=== PATIENT | male | born 1955 | race Caucasian/White ===

== ENCOUNTER 2020-08-03 17:27 | Inpatient (IN) | payer MEDICARE, MEDICAID ==
[2020-08-03] VITALS (20 sets, daily range): BP systolic 88–129; BP diastolic 50–98; BMI 17.7
[~2020-08-03] VITALS: Ht 177.8 cm; Wt 60.6 kg
--- NOTE | 2020-08-03 17:27 | NUR ---
PATIENT ARRIVED VIA SURVIVAL FLIGHT FROM [facility] POST LENGTHY CARDIAC ARREST WITH CPR AND ACLS PROTOCOLS. PATIENT IS UNRESPONSIVE, INTUBATED ORALLY WITH 7.5 ETT, 23CM AT LIP LINE. NASOGASTRIC TUBE TO RIGHT NARE DRAINING BLOOD TINGED FLUID. TO LOW INTERMITTENT SUCTION. RIGHT EXTERNAL JUGULAR [address], FLUSHES WELL. RIGHT FOREARM 20 GA ALSO FLUSHES WELL. LEFT TIBIAL IO IN PLACE, LINE CLAMPED. NGUYEN CATHETER INTACT DRAINING SCANT YELLOW URINE. VENTILATOR INITIATED: FIO2 100%, AC 18, VT 500 AND PEEP 5. NO SPONTANEOUS RESPIRATIONS. SINUS RHYTHM ON MONITOR. BP 119/59. LEVOPHED DRIP AT 2MCG/MN STOPPED PER DR. WATSON.
--- NOTE | 2020-08-03 17:40 | NUR ---
VENTILATOR SETTINGS CHANGED TO FIO2 OF 60%. PO2 ON BLOOD GASES >200.
--- NOTE | 2020-08-03 17:45 | NUR ---
BODY TEMP 93.2 AXILLARY. WARM BLANKETS APPLIED AND HOT PACKS TO ARMPITS AND GROIN.
[2020-08-03 18:05] LABS: HEMATOCRIT 22.3 % (42.0-54.0); LYMPHOCYTE ABS# 1.58 10x3/uL (1.32-3.57); MCH 30.9 pg (26.0-34.0); MCHC 32.7 g/dL (31.0-37.0); MCV 94.5 fL (80.0-100.0); MEAN PLATELET VOLUME 12.1 fL (7.4-10.4); NEUTROPHIL ABS# 6.73 10x3/uL (1.78-5.38); PLATELET COUNT 242 10x3/uL (130-400); RBC 2.36 10x6/uL (4.20-6.10); RDW 15.1 % (11.5-14.5); WBC 9.5 10x3/uL (4.8-10.8)
--- NOTE | 2020-08-03 18:08 | NUR ---
HGB OF 7.3 CALLED FROM LAB. REPORTED TO DR. WATSON.
[2020-08-03 18:11] LABS: HEMOGLOBIN 7.3 g/dL (13.5-17.5)
--- NOTE | 2020-08-03 18:15 | NUR ---
TRANSPORTED TO CT VIA STRETCHER, BAGGED BY RT, MONITORED, ACCOMPANIED BY RT AND RN.
[2020-08-03 18:19] LABS: ALBUMIN 1.2 g/dL (3.4-5.0); ANION GAP 33.1 mmol/L (8-16); BILIRUBIN - TOTAL 0.35 mg/dL (0.2-1.3); CALCIUM 7.2 mg/dL (8.5-10.1); CREATININE - SERUM 14.9 mg/dL (0.6-1.3); POTASSIUM - SERUM 5.3 mmol/L (3.5-5.1); PROTEIN - SERUM 4.7 g/dL (6.4-8.2)
[2020-08-03 18:21] LABS: CARBON DIOXIDE 7.2 mmol/L (21.0-32.0)
--- NOTE | 2020-08-03 18:25 | NUR ---
BACK TO ROOM.
[2020-08-03 18:27] LABS: EOSINOPHILS 2 % (0-7); LYMPHOCYTES 12 % (15-50); MONOCYTES 2 % (2-11); NEUTROPHILS 61 % (40-80); PLATELET ESTIMATE NORMAL
--- NOTE | 2020-08-03 19:14 | NUR ---
CORE TEMP 91.6. RODERICK HUGGER ON AT HIGH SETTING. PATIENT REMAINS UNRESPONSIVE TO VERBAL OR TACTILE STIMULI.
--- NOTE | 2020-08-03 22:00 | NUR ---
PATIENT ARRIVED TO ICU, ACCOMPANIED BY RT AND ER NURSE. PATIENT REMAINS ON MECHANICAL VENTILATION. PATIENT REMAINS UNRESPONSIVE. NO RESPONSE TO TACTILE OR PHYSICAL STIMULUS. WHEN ORAL CARE WAS PERFORMED. PATIENT NOTED TO HAVE A GAG AND COUGH REFLEX. WILL CPOC.
--- NOTE | 2020-08-03 23:39 | NUR ---
PAGED DR. TOLEDO IN REGARDS TO THE CONSULT ORDERED. AWAITING RETURN CALL.
--- NOTE | 2020-08-03 23:46 | NUR ---
RECEIVED RETURN CALL FROM DR. TOLEDO. NO NEW ORDERS GIVEN.
--- NOTE | 2020-08-03 23:57 | NUR ---
Spoke with Dr. Valdes about new consult. EEG only order at this time.
[2020-08-04] VITALS (87 sets, daily range): BP systolic 55–161; BP diastolic 26–97; Ht 177.8 cm; Wt 60.6 kg
--- NOTE | 2020-08-04 00:30 | NUR ---
PATIENT BP DECREASED. LEVOPHED TITRATED PER ORDER. ART BOOTHN PAGED. NEW ORDERS GIVEN. VASSOPRESSIN DRIP STARTED, 2 AMPS OF BICARB ADMINISTERED. PATIENT STABLE AT THIS TIME. ART LOVE APRN AT BEDSIDE FOR EVALATION.
[2020-08-04 01:57] LABS: CKMB 42.7 U/L (0.0-3.6); CREATINE KINASE 3530 UL (21-232); TROPONIN-I 0.321 ng/mL (0.000-0.060)
[2020-08-04 07:32] LABS: BILIRUBIN NEGATIVE (NEGATIVE); KETONE NEGATIVE (NEGATIVE); NITRITE NEGATIVE (NEGATIVE); UROBILINOGEN NORMAL mg/dL (< 2)
[2020-08-04 07:33] LABS: BACTERIA FEW HPF (NONE SEEN)
[2020-08-04 10:01] LABS: ALKALINE PHOSPHATASE 150 U/L (30-120); BILIRUBIN - TOTAL 0.58 mg/dL (0.2-1.3); CHLORIDE - SERUM 110 mmol/L (98-107); CHOL - HDL RATIO 3.9 ratio (2.3-4.9); CHOLESTEROL, TOTAL 51 mg/dL (0-200); CKMB 19.3 U/L (0.0-3.6); CREATININE - SERUM 14.1 mg/dL (0.6-1.3); HDL CHOLESTEROL 13 mg/dL (32-96); LDL CHOLESTEROL 18 mg/dL (0-100); LDL-HDL RATIO 1.4 ratio (1.5-3.5); MAGNESIUM - SERUM 1.8 mg/dL (1.8-2.4); PHOSPHOROUS 8.9 mg/dL (2.5-4.9); PRO BNP 15897 pg/mL (0-125); PROTEIN - SERUM 3.8 g/dL (6.4-8.2); SODIUM 151 mmol/L (136-145); TRIGLYCERIDE 103 mg/dL (30-200); eGFR NON AFRICAN AMERICAN 4 mL/min (90-120)
[2020-08-04 10:03] LABS: CALC OSMOLALITY 363 mosm/kg (275-300); CARBON DIOXIDE 19.3 mmol/L (21.0-32.0); GLUCOSE 376 mg/dL (74-106); POTASSIUM - SERUM 3.4 mmol/L (3.5-5.1); UREA NITROGEN 149 mg/dL (7-18)
[2020-08-04 10:04] LABS: ALT (SGPT) 54 U/L (10-68); CALCIUM 6.2 mg/dL (8.5-10.1); CREATINE KINASE 3348 UL (21-232)
[2020-08-04 10:11] LABS: APTT 42.4 SECONDS (22.8-39.4); INR 2.13 (0.85-1.17); PROTIME 22.1 SECONDS (11.6-15.0)
[2020-08-04 10:40] LABS: TROPONIN-I 0.552 ng/mL (0.000-0.060)
--- NOTE | 2020-08-04 12:49 | NUR ---
WILL STOP REPLACEMENT OF ELECTOLYTES AND PATIENT IS BRAIN AT THIS POINT.
--- NOTE | 2020-08-04 12:54 | NUR ---
FRIENDS ARE HERE AND THEY SAY HE HAS NO FAMILY [facility] INDUSTRIAL TECH INSTRUCTOR SHE SAYS [phone] AND A VERY GOOD FRIEND JOHNNY ARRIAZA [phone] BOTH ARE HERE AND UPDATED ON THE SITUATION. CASE MANAGEMENT CALLED AND WILL COME TO TALK.
--- NOTE | 2020-08-04 14:55 | MORECARE ---
CASE MANAGEMENT DISCHARGE SUMMARY PATIENT: DARY SHAFFER UNIT: [id number] ADM DATE: 08/03/20 AGE: 65 : 55 SEX: M ROOM/BED: D.2307 AUTHOR: DORONDOC PHYSICIAN: REFERRING PHYSICIAN: KYLAH LITTLE MD DATE OF SERVICE: 08/04/20 Case Management Discharge Planning Summary DCP REVIEW SUMMARY ANTICIPATED D/C DATE: EXPECTED LOS : CASE STATUS: DCP Initiated INITIAL REVIEW: 08/03/2020 INITIAL REVIEWER: Zo Calderon FINAL DISCHARGE DISPOSITION: : FINAL REVIEWER: FINAL REVIEW DATE: DCP Focus Questions & Answers QUESTION: ANSWER : PATIENT: DARY SHAFFER ENCOUNTER: [id number] MEDICAL RECORD#: [id number] ADMISSION DATE: 08/03/2020 DISCHARGE DATE: ATTENDING MD: : AGE: 65 MARITAL STATUS: S DC PLAN ID: [id number] FACILITY: [facility] PRINTED ON: 08/04/20 14:55 CT All edits/amendments must be made on the electronic document DICTATION DATE: 08/04/201454 CANTEEN OPERATOR: DM 08/04/20 1455 RPT#: [id number] DC DATE: STATUS: ADM IN [facility] [address] [place] [address] END OF REPORT
--- NOTE | 2020-08-04 15:35 | MORECARE ---
CASE MANAGEMENT DISCHARGE SUMMARY PATIENT: FRANKO DICKSON UNIT: [id number] ADM DATE: 08/03/20 AGE: 65 : 55 SEX: M ROOM/BED: D.2307 AUTHOR: DORON,DOC PHYSICIAN: REFERRING PHYSICIAN: KYLAH LITTLE MD DATE OF SERVICE: 08/04/20 Case Management Discharge Planning Summary COMMENTS ENTERED DATE: 08/04/20 14:50 CT COMMENT TYPE: Discharge Planning REVIEWER: Zo Calderon CM called [facility] in [place], [facility], to get emergency contact info. Was told Mr. Yash Lester was emergency contact listed with agency. CM called patient's PCP, Dr. Chai Ordaz to get emergency contact information. Was told Mr. Yash Lester was emergency contact. CM met with patient's emergency contact Yash Lester, . Mr. Lester has known the patient for 15 years. Mr. Lester has informed CM that the patient has a Step-Dad, Shelly Rodriguez [phone], and a son, Franko Dickson Jr. Mr Lester states he has never met the patient's son and does not know how to contact him. States patient was originally from [place]. Is not aware of any other family. CM called and spoke with Shelly Rodriguez. CM informed Mr. Rodriguez that I was trying to locate family in order to make medical decisions for patient as he is not able to make decisions for himself and our physicians need to speak with family about the patient's poor prognosis. Mr. Rodriguez stated he did not want to make medical decisions for the patient. CM explained that the physicians are recommending taking the patient off life support d/t the EEG not showing any brain activity. Mr Rodriguez stated that if the physicians are recommending discontinuing life support then he thought that was all we could do. CM asked if he knew how to reach patient's son. Mr Rodriguez stated he hadn't been in contact with patient's son in 8 years. Does not have a phone number for him or know anyone that would know how to reach him. CM informed Mr. Rodriguez that if the hospital is not able to reach the son, and he is not willing to make medical decisions for the patient, we would proceed with the physician's recommendation to end life support. Mr Rodriguez verbalized understanding. CM gave Mr. Rodriguez contact number for ICU. CM called and notified Negrita Weaver, about this and she stated the hospital would follow the recommendation of the physician's regarding ending life support if 2 or more physicians agree with plan of care. CM informed Dr. Ramirez. CM will continue to follow and attempt to reach patient's son. DCP REVIEW SUMMARY ANTICIPATED D/C DATE: EXPECTED LOS : CASE STATUS: DCP Initiated INITIAL REVIEW: 08/03/2020 INITIAL REVIEWER: Zo Calderon FINAL DISCHARGE DISPOSITION: : FINAL REVIEWER: FINAL REVIEW DATE: DCP Focus Questions & Answers QUESTION: ANSWER : PATIENT: FRANKO DICKSON ENCOUNTER: [id number] MEDICAL RECORD#: [id number] ADMISSION DATE: 08/03/2020 DISCHARGE DATE: ATTENDING MD: FREDDIE: AGE: 65 MARITAL STATUS: S DC PLAN ID: [id number] FACILITY: [facility] PRINTED ON: 08/04/20 15:35 CT All edits/amendments must be made on the electronic document DICTATION DATE: 08/04/20 153 BOX BLANK MACHINE FEEDER: MATTHEW 08/04/20 153 RPT#: [id number] DC DATE: STATUS: ADM IN [facility] [address] [place] [address] END OF REPORT
--- NOTE | 2020-08-04 18:14 | NUR ---
PATIENT FRIEND MR. TURNER TOOK THE PATIENT WALLET WHEN HE LEFT TODAY THERE WAS NO MONEY OR CREDIT CARDS IN THE WALLET.
--- NOTE | 2020-08-04 19:16 | NUR ---
RECEIVED BEDSIDE REPORT. ROUNDING COMPLETE. PATIENT RESTING COMFORTABLY. PATIENT REMAINS ON MECHANICAL VENTILATION. WILL CPOC.
--- NOTE | 2020-08-04 23:22 | NUR ---
PAGED ART LOVE APN REGARDING PATIENT BP. ART LOVE APN DEFERRED TO DR. NOEL. CALLED AND SPOKE WITH DR. NOEL REGARDING PATIENT BP AND IF WANTED ANYTHING ELSE DONE REGARDING BP. "DO NOT INCREASE VASOPRESSORS"
[2020-08-05] VITALS (17 sets, daily range): BP systolic 64–124; BP diastolic 34–97
--- NOTE | 2020-08-05 05:30 | NUR ---
PATIENT WENT ASYSTOLE AT 0524. PATIENT DNR. CALLED ART LOVE APN. DR. OLIVEROS CALLED TO PRONOUNCE PATIENT. CALLED [facility] AWAITING RETURN CALL. CALLED JOHNNY ARRIAZA, HE INFORMED THAT [facility] IN [place], [place] SHOULD BE USED. DR. NOEL CALLED AND IS AWARE OF PATIENT PASSING.
--- NOTE | 2020-08-05 13:20 | NUR ---
1100: SPOKE WITH PTS CAREGIVER JOAN AT THIS TIME WHO PROVIDED PTS UNCLE'S NUMBER: UNCLE JEANCARLOS ROSE [phone]. 1240: PER PTS UNCLE JEANCARLOS IT IS OKAY TO RELEASE THE BODY TO [facility] IN [place], [place]. PT HAS NO PERSONAL ITEMS TO SEND WITH THE BODY. 1250: [facility]KE WITH [facility] WHO STATED THEY ARE ON THEIR WAY TO INSTRUMENTATION CONTROLS ENGINEER PT. ALSO SPOKE WITH [facility] AT THIS TIME WHO STATED THEY WILL RELEASE THE BODY, HOWEVER HE IS STILL A POTENTIAL DONOR. WAITING ON HOME.
--- NOTE | 2020-08-05 14:30 | NUR ---
BODY PICKED UP BY [facility] COMPOUNDER HELPER AT THIS TIME.
--- NOTE | 2020-08-05 15:00 | MORECARE ---
CASE MANAGEMENT DISCHARGE SUMMARY PATIENT: FRANKO DICKSON UNIT: [id number] ADM DATE: 08/03/20 AGE: 65 : 55 SEX: M ROOM/BED: D.2307 AUTHOR: DORON,DOC PHYSICIAN: REFERRING PHYSICIAN: KYLAH LITTLE MD DATE OF SERVICE: 08/05/20 Case Management Discharge Planning Summary COMMENTS ENTERED DATE: 08/04/20 14:50 CT COMMENT TYPE: Discharge Planning REVIEWER: Zo Calderon CM called [facility] in [place], formerly [facility], to get emergency contact info. Was told Mr. Yash Lester was emergency contact listed with agency. CM called patient's PCP, Dr. Chai Ordaz to get emergency contact information. Was told Mr. Yash Lester was emergency contact. CM met with patient's emergency contact Yash Lester, . Mr. Lester has known the patient for 15 years. Mr. Lester has informed CM that the patient has a Step-Dad, Shelly Rodriguez [phone], and a son, Franko Dickson Jr. Mr Lester states he has never met the patient's son and does not know how to contact him. States patient was originally from [place]. Is not aware of any other family. CM called and spoke with Shelly Rodriguez. CM informed Mr. Rodriguez that I was trying to locate family in order to make medical decisions for patient as he is not able to make decisions for himself and our physicians need to speak with family about the patient's poor prognosis. Mr. Rodriguez stated he did not want to make medical decisions for the patient. CM explained that the physicians are recommending taking the patient off life support d/t the EEG not showing any brain activity. Mr Rodriguez stated that if the physicians are recommending discontinuing life support then he thought that was all we could do. CM asked if he knew how to reach patient's son. Mr Rodriguez stated he hadn't been in contact with patient's son in 8 years. Does not have a phone number for him or know anyone that would know how to reach him. CM informed Mr. Rodriguez that if the hospital is not able to reach the son, and he is not willing to make medical decisions for the patient, we would proceed with the physician's recommendation to end life support. Mr Rodriguez verbalized understanding. CM gave Mr. Rodriguez contact number for ICU. CM called and notified Negrita Weaver, about this and she stated the hospital would follow the recommendation of the physician's regarding ending life support if 2 or more physicians agree with plan of care. CM informed Dr. Ramirez. CM will continue to follow and attempt to reach patient's son. DCP REVIEW SUMMARY ANTICIPATED D/C DATE: EXPECTED LOS : CASE STATUS: DCP Initiated INITIAL REVIEW: 08/03/2020 INITIAL REVIEWER: Zo Calderon FINAL DISCHARGE DISPOSITION: : FINAL REVIEWER: FINAL REVIEW DATE: DCP Focus Questions & Answers QUESTION: ANSWER : PATIENT: FRANKO DICKSON ENCOUNTER: [id number] MEDICAL RECORD#: [id number] ADMISSION DATE: 08/03/2020 DISCHARGE DATE: 08/05/2020 ATTENDING MD: FREDDIE: AGE: 65 MARITAL STATUS: S DC PLAN ID: [id number] FACILITY: [facility] PRINTED ON: 08/05/20 15:00 CT All edits/amendments must be made on the electronic document DICTATION DATE: 08/05/20 1500 [place] [address] ATTENDANT: MATTHEW 08/05/20 1500 RPT#: [id number] DC DATE:08/05/20 STATUS: DIS IN [facility] [address] [place] [address] END OF REPORT
--- NOTE | 2020-08-05 15:24 | EC ---
PATIENT:DARY SHAFFER DATE OF SERVICE: 08/03/20 SEX: M MEDICAL RECORD: [id number] DATE OF : 55 LOCATION:[facility] AGE OF PATIENT: 65 ADMISSION DATE: 08/03/20 REFERRING PHYSICIAN: INTERPRETING PHYSICIAN: JEANINE BARRERA MD ECHOCARDIOGRAM REPORT ECHO CHARGES 4 ECHO COMPLETE Date: 08/04/20 CLINICAL DIAGNOSIS: CARDIAC ARREST ECHOCARDIOGRAPHIC MEASUREMENTS (adult normal given) AC root (d.<3.7cm) 2.9 cm LV Septum d (<1.2 cm> 0.8 cm Valve Excursion 1.3 cm LV Septum (systole) 1.1 cm Left Atria (s.<4.0cm> cm LVPW d(<1.2cm) 0.8 cm RV (d.<2.3cm) 2.2 cm LVPW (sytole) 1.2 cm LV diastole(<5.6CM) 4.0 cm MV E-F(>70mm/sec) cm LV systole 2.9 cm LVOT Diameter 1.5 cm MV exc.(>10mm) 1.2 cm Est.ejection fraction (50-75%) % DOPPLER: LVIT cm/sec A 30 cm/sec E 37 cm/sec LA cm/sec RVSP 41 mmHg LVOT 94 cm/sec AOP1/2T m/s Asc. Ao 179 cm/sec RVOT 58 cm/sec RA cm/sec PA 79 cm/sec AV Gradient Peak 12.9 mmHg AV Mean 9.2 mmHg AV Area 1.3 cm MV Gradient Peak 1.3 mmHg MV Mean 0.8 mmHg MV Area cm COMMENTS: Balance Weigher: Clive AGUILERA Counter Waitress/Waiter: 2 Dr. Chavez TAPE# Pericardial Effusion N DATE OF SERVICE: CLINICAL INDICATION: Cardiac history, cardiac arrest. INTERPRETATION: Technically difficult study, severe global LV contractile dysfunction, ejection fraction 10% to 15%. Left atrial chamber not well visualized. Right atrium and right ventricular chamber is not well visualized. Aortic valve is not well visualized. No aortic regurgitation noted. Mitral valve is normal. Mild mitral regurgitation. Tricuspid valve not well visualized, but appeared normal. Mild tricuspid regurgitation. Pulmonary valve ECHOCARDIOGRAM REPORT [id number] DARY SHAFFER not well visualized. No pulmonary regurgitation. No pericardial effusion visualized. IMPRESSION: Technically difficult study, overall severe global left ventricular contractile dysfunction, ejection fraction 10% to 15%. TRANSINT:[id number] Voice Confirmation ID: [id number] DOCUMENT ID: [id number] JEANINE BARRERA MD at 1524 CC: [id number] DICTATION DATE: 08/05/20 1155 CLINICAL ACCOUNT LIAISON: 08/05/20 1223 DIS IN 08/05/20 [place] [id number] [place] [id number]
--- NOTE | 2020-08-07 13:38 | EEG ---
PATIENT:DARY SHAFFER MEDICAL RECORD: [id number] DATE OF : 55 LOCATION:D.230 D.ICU ADMISSION DATE: 08/03/20 REFERRING PHYSICIAN: INTERPRETING PHYSICIAN: BENSON PEREZ MD DATE OF SERVICE: 08/04/2020 DATE OF EE08/04/2020 ROOM NUMBER: [id number] ORDERED BY: Dr. Perez. CASE HISTORY: A 65-year-old male with observed outside of hospital cardiac arrest with convulsion followed by arrest and asystole, the patient was coded for 35 minutes and pronounced , but reportedly had return of spontaneous circulation afterwards. The patient is intubated and unresponsive with no sedating medications. PROCEDURE: EEG done as a routine bedside portable recording using the standard 10-20 international electrode system. A 16-channel was used with 17th as EKG. DESCRIPTION OF OPERATION: EEG opens with the patient unresponsive with the record displaying absence of meaningful electrical voltage amplitudes throughout. No response to stimuli in the environment. No seizure activity noted. IMPRESSION: Markedly abnormal EEG with absence of meaningful electrical voltage amplitude diffusely throughout brain. This EEG would be consistent with acute anoxic brain injury and electrical silence. TRANSINT:[id number] Voice Confirmation ID: [id number] DOCUMENT ID: [id number] BENSON PEREZ MD at 1338 CC: [id number] DICTATION DATE: 08/04/20 1220 WRAPPING MACHINE HELPER: 08/04/20 1239 DIS IN 08/05/20 [place] [id number] [place] [id number]
--- NOTE | 2020-08-07 18:37 | MORECARE ---
CASE MANAGEMENT DISCHARGE SUMMARY PATIENT: FRANKO DICKSON UNIT: [id number] ADM DATE: 08/03/20 AGE: 65 : 55 SEX: M ROOM/BED: D.2307 AUTHOR: DORON,DOC PHYSICIAN: REFERRING PHYSICIAN: KYLAH LITTLE MD DATE OF SERVICE: 08/07/20 Case Management Discharge Planning Summary COMMENTS ENTERED DATE: 08/04/20 14:50 CT COMMENT TYPE: Discharge Planning REVIEWER: Zo Calderon CM called [facility] in [place], [facility], to get emergency contact info. Was told Mr. Yash Lester was emergency contact listed with agency. CM called patient's PCP, Dr. Chai Ordaz to get emergency contact information. Was told Mr. Yash Lester was emergency contact. CM met with patient's emergency contact Yash Lester, . Mr. Lester has known the patient for 15 years. Mr. Lester has informed CM that the patient has a Step-Dad, Shelly Rodriguez [phone], and a son, Franko Dickson Jr. Mr Lester states he has never met the patient's son and does not know how to contact him. States patient was originally from [place]. Is not aware of any other family. CM called and spoke with Shelly Rodriguez. CM informed Mr. Rodriguez that I was trying to locate family in order to make medical decisions for patient as he is not able to make decisions for himself and our physicians need to speak with family about the patient's poor prognosis. Mr. Rodriguez stated he did not want to make medical decisions for the patient. CM explained that the physicians are recommending taking the patient off life support d/t the EEG not showing any brain activity. Mr Rodriguez stated that if the physicians are recommending discontinuing life support then he thought that was all we could do. CM asked if he knew how to reach patient's son. Mr Rodriguez stated he hadn't been in contact with patient's son in 8 years. Does not have a phone number for him or know anyone that would know how to reach him. CM informed Mr. Rodriguez that if the hospital is not able to reach the son, and he is not willing to make medical decisions for the patient, we would proceed with the physician's recommendation to end life support. Mr Rodriguez verbalized understanding. CM gave Mr. Rodriguez contact number for ICU. CM called and notified Negrita Weaver, about this and she stated the hospital would follow the recommendation of the physician's regarding ending life support if 2 or more physicians agree with plan of care. CM informed Dr. Ramirez. CM will continue to follow and attempt to reach patient's son. DCP REVIEW SUMMARY ANTICIPATED D/C DATE: EXPECTED LOS : CASE STATUS: DCP Initiated INITIAL REVIEW: 08/03/2020 INITIAL REVIEWER: Zo Calderon FINAL DISCHARGE DISPOSITION: : FINAL REVIEWER: FINAL REVIEW DATE: DCP Focus Questions & Answers QUESTION: ANSWER : PATIENT: FRANKO DICKSON ENCOUNTER: [id number] MEDICAL RECORD#: [id number] ADMISSION DATE: 08/03/2020 DISCHARGE DATE: 08/05/2020 ATTENDING MD: FREDDIE: AGE: 65 MARITAL STATUS: S DC PLAN ID: [id number] FACILITY: [facility] PRINTED ON: 08/07/20 18:36 CT All edits/amendments must be made on the electronic document DICTATION DATE: 08/07/201835 SWIMMING POOL SALESPERSON: MATTHEW 08/07/201835 RPT#: [id number] DC DATE:08/05/20 STATUS: DIS IN [facility] [address] [place] [address] END OF REPORT
== END 2020-08-05 05:33 | DRG 208 ==
LOC: D.ER 17:27 → D.ICU 18:50
PROVIDERS: Student in an Organized Health Care Education/Training Program; ADMIT Family Medicine; ATTEND Family Medicine
PROC: 5A1945Z Respiratory Ventilation, 24-96 Consecutive Hours (ICD-10-PCS; principal; 2020-08-03)
DX: J96.00 Acute respiratory failure, unspecified whether with hypoxia or hypercapnia (principal); K72.00 Acute and subacute hepatic failure without coma; J18.9 Pneumonia, unspecified organism; I21.A1 Myocardial infarction type 2; E43 Unspecified severe protein-calorie malnutrition; G93.6 Cerebral edema; G93.1 Anoxic brain damage, not elsewhere classified; N17.9 Acute kidney failure, unspecified; E87.2 Acidosis; M62.82 Rhabdomyolysis; E87.1 Hypo-osmolality and hyponatremia; N39.0 Urinary tract infection, site not specified; G97.82 Other postprocedural complications and disorders of nervous system; E87.0 Hyperosmolality and hypernatremia; I46.9 Cardiac arrest, cause unspecified; E87.6 Hypokalemia; E83.39 Other disorders of phosphorus metabolism